=== PATIENT | male | born 1970 | race Caucasian/White ===

== ENCOUNTER 2021-09-14 19:49 | Emergency (ER) | payer OTHER ==
[~2021-09-14 19:49] MED LIST: ACCUPRIL TAB 5MG5 MG PO; ASPIRIN 325MG325 MG PO; COREG 3.125M3.125 MG PO; IMDUR ER TAB 3030 MG PO; NITROSTAT0.4 MG SL; THERAGRAN M TAB1 EA PO; ULTRAM50 MG PO; VENTOLIN HFA 66.7 GM INH
[2021-09-15] MEDS ORDERED: PROAIR HFA8.5 GM INH (04:20)
[2021-09-15] MEDS ORDERED: BENZONATATE200 MG PO (04:20)
== END 2021-09-15 05:27 | disposition home or self-care (01) ==
LOC: ER1 19:49
DX: U07.1 COVID-19 (principal); Z23 Encounter for immunization; J44.9 Chronic obstructive pulmonary disease, unspecified; F17.200 Nicotine dependence, unspecified, uncomplicated
CPT/HCPCS: 71045; 99283; M0243; U0002